=== PATIENT | female | born 1970 | race Caucasian/White ===

== ENCOUNTER 2017-03-25 17:27 | Emergency (ER) | payer SELFPAY ==
--- NOTE | 2017-03-25 18:29 | CPEKG ---
Heart Rate: 86 RR Interval: 698 P-R Interval: 152 QRSD Interval: 86 QT Interval: 384 QTC Interval: 460 P [place]: 44 QRS [place]: 48 T Wave [place]: 32 EKG Severity - BORDERLINE ECG - EKG Impression: SINUS RHYTHM EKG Impression: LOW VOLTAGE THROUGHOUT EKG Impression: Agree with above Electronically Signed By: Mayo Rahman 27-Mar-2017 10:58:52
[2017-03-25 18:50] LABS: % IMMATURE GRANULYOCYTES 0.3 % (0.0-1.1); ABSOLUTE IMMATURE GRANULOCYTES 0.02 10^3/uL (0.00-0.10); ADD DIFF? NO; ADD MORPH? NO; ADD SCAN? NO; ATYPICAL LYMPHOCYTE FLAG 0 (0-99); FRAGMENT RBC FLAG 0 (0-99); HEMATOCRIT 42.2 % (38.0-47.0); HEMOGLOBIN 14.4 g/dL (12.6-16.3); LEFT SHIFT FLG 10 (0-99); LIPEMIA HEMOLYSIS FLAG 90 (0-99); MEAN CELL HEMOGLOBIN 31.2 pg (27.9-34.1); MEAN CELL HEMOGLOBIN CONCENTR. 34.1 g/dL (32.4-36.7); MEAN CELL VOLUME 91.3 fL (81.5-99.8); MEAN PLATELET VOLUME 11.7 fL (8.7-11.7); PLATELET CLUMPS FLAG 10 (0-99); PLATELET COUNT 261 10^3/uL (150-400); RED BLOOD CELL COUNT 4.62 10^6/uL (4.18-5.33); RED CELL DISTRIBUTION WIDTH 12.8 % (11.5-15.2)
--- NOTE | 2017-03-25 18:56 | EDPHY ---
HPI/HX/ROS/PE/MDM Narrative: CHIEF COMPLAINT: Palpitations HPI: The patient is a 47-year-old female who complains of acute on chronic palpitations. The patient was diagnosed with palpitations 10 years ago. For the past year she has not experienced palpitations. Over the past 6 days these palpitations returned. She reports 6-10 episodes per hour, but not every hour. Patient attributes symptoms to recent increase in stress. She denies chest pain or shortness of breath. No new medications. REVIEW OF SYSTEMS: Aside from elements discussed in the HPI, a comprehensive 10-point review of systems was reviewed and is negative. PMH: Palpitations. SOCIAL HISTORY: Single mother. Denies drug abuse. PHYSICAL EXAM: General: Patient is alert, in no acute distress. ENT: Eyes are normal to inspection. ENT inspection normal. Neck: Normal inspection. Full range of motion. Respiratory: No respiratory distress. Breath sounds normal bilaterally. Cardiovascular: Regular rate and rhythm. Strong peripheral pulses. Abdomen: The abdomen is nontender to palpation. There are no peritoneal signs. There are normal bowel sounds. Back: Normal to inspection. No tenderness to palpation. Skin: Normal color. No rash. Warm and dry. Extremities: Normal appearance. Full range of motion. Neuro: Oriented x3. Normal motor function. Normal sensory function. ED Course: Patient presents with palpitations, which she has been evaluated for in the past. EKG was ordered and interpreted by myself, sinus rhythm. Please see [facility] system for official reading. MDM: This is a healthy female who presents with palpitations. She is NSR on ECG without evidence of arrhythmia or ischemia. Her labs are normal. She has no chest pain or SOB to suggest PE. She was observed in the ED on security monitor which did not reveal any abnormalities. She has been told in the past that her palpitations were benign, and I suspect she is likely having PVCs. I think she is safe for further outpatient workup and she agrees with the plan for discharge home with strict return precautions. - Data Points Laboratory Results: Laboratory Results 03/25/17 18:40 03/25/17 18:40 03/25/17 03/25/17 18:40 18:40 WBC 6.66 10^3/uL 10^3/uL (3.80-9.50) RBC 4.62 10^6/uL 10^6/uL (4.18-5.33) Hgb 14.4 g/dL g/dL (12.6-16.3) Hct 42.2 % % (38.0-47.0) MCV 91.3 fL fL (81.5-99.8) MCH 31.2 pg pg (27.9-34.1) MCHC 34.1 g/dL g/dL (32.4-36.7) RDW 12.8 % % (11.5-15.2) Plt Count 261 10^3/uL 10^3/uL (150-400) MPV 11.7 fL fL (8.7-11.7) Neut % (Auto) 69.3 % % (39.3-74.2) Lymph % (Auto) 21.6 % % (15.0-45.0) [place] % (Auto) 7.8 % % (4.5-13.0) Eos % (Auto) 0.5 % L % (0.6-7.6) Baso % (Auto) 0.5 % % (0.3-1.7) Nucleat RBC Rel Count 0.0 % % (0.0-0.2) Absolute Neuts (auto) 4.62 10^3/uL 10^3/uL (1.70-6.50) Absolute Lymphs (auto) 1.44 10^3/uL 10^3/uL (1.00-3.00) Absolute Monos (auto) 0.52 10^3/uL 10^3/uL (0.30-0.80) Absolute Eos (auto) 0.03 10^3/uL 10^3/uL (0.03-0.40) Absolute Basos (auto) 0.03 10^3/uL 10^3/uL (0.02-0.10) Absolute Nucleated RBC 0.00 10^3/uL 10^3/uL (0-0.01) Immature Gran % 0.3 % % (0.0-1.1) Immature Gran # 0.02 10^3/uL 10^3/uL (0.00-0.10) Sodium 138 mEq/L mEq/L (134-144) Potassium 4.3 mEq/L mEq/L (3.5-5.2) Chloride 107 mEq/L mEq/L (97-110) Carbon Dioxide 21 mEq/l L mEq/l (22-31) Anion Gap 10 mEq/L mEq/L (8-16) BUN 11 mg/dL mg/dL (7-23) Creatinine 0.6 mg/dL mg/dL (0.6-1.0) Estimated GFR > 60 Glucose 88 mg/dL mg/dL (70-100) Calcium 9.3 mg/dL mg/dL (8.5-10.4) Troponin I < 0.012 ng/mL ng/mL (0-0.034) General Time Seen by Provider: 03/25/17 18:30 Initial Vital Signs: Initial Vital Signs Temperature (C) 37.4 C 03/25/17 17:38 Heart Rate 91 03/25/17 17:38 Respiratory Rate 18 03/25/17 17:38 Blood Pressure 136/73 H 03/25/17 17:38 O2 Sat (%) 96 03/25/17 17:38 O2 Delivery Mode Room Air Allergies/Adverse Reactions: No Known Allergies Allergy (Verified 03/25/17 17:36) Home Medications: Medication Instructions Recorded NO HOME MEDS 09/06/10 Departure - Departure Disposition: Home, Routine, Self-Care Clinical Impression: Palpitations Condition: Good Instructions: Palpitations (ED) Additional Instructions: Please followup with your parking ramp attendant if you continue to have symptoms. Return to the Emergency Department with chest pain, shortness of breath, new or worsening symptoms. Referrals: Brigida Velázquez MD [Primary Care Provider] - As per Instructions [facility] [Provider Group] - As per Instructions Report Scribed for: Malvin Barton Report Scribed by: Magui Combs Date of Report: 03/25/17 Time of Report: 19:23 Physician Review and Approval Statement: Portions of this note were transcribed by a diagnostic medical sonographer. I personally performed the history, physical exam, and medical decision-making; and confirmed the accuracy of the information in the transcribed note.
[2017-03-25 19:03] LABS: ANION GAP 10 mEq/L (8-16); CALCIUM 9.3 mg/dL (8.5-10.4); CARBON DIOXIDE 21 mEq/l (22-31); CHLORIDE 107 mEq/L (97-110); CREATININE 0.6 mg/dL (0.6-1.0); GLOMERULAR FILTRATION RATE > 60; GLUCOSE 88 mg/dL (70-100); POTASSIUM 4.3 mEq/L (3.5-5.2); SODIUM 138 mEq/L (134-144)
[2017-03-25 19:14] LABS: TROPONIN I < 0.012 ng/mL (0-0.034)
[2017-03-25 19:33] VITALS: BP 133/88; PULSE 85; RESP 14; TEMP 97.5; O2SAT 95
== END 2017-03-25 19:32 | disposition home or self-care (01) ==
DX: R00.2 Palpitations (principal)

== ENCOUNTER 2017-03-27 15:37 | Emergency (ER) | payer SELFPAY ==
--- NOTE | 2017-03-27 16:01 | CPEKG ---
Heart Rate: 81 RR Interval: 741 P-R Interval: 140 QRSD Interval: 86 QT Interval: 372 QTC Interval: 432 P [place]: 37 QRS [place]: 40 T Wave [place]: 19 EKG Severity - OTHERWISE NORMAL ECG - EKG Impression: SINUS RHYTHM EKG Impression: LOW VOLTAGE IN FRONTAL LEADS EKG Impression: No significant change from March 25, 2017 Electronically Signed By: Mayo Rahman 29-Mar-2017 09:59:11
[2017-03-27 16:30] LABS: % IMMATURE GRANULYOCYTES 0.6 % (0.0-1.1); ABSOLUTE IMMATURE GRANULOCYTES 0.03 10^3/uL (0.00-0.10); ADD DIFF? NO; ADD MORPH? NO; ADD SCAN? NO; ATYPICAL LYMPHOCYTE FLAG 20 (0-99); FRAGMENT RBC FLAG 0 (0-99); HEMATOCRIT 43.5 % (38.0-47.0); HEMOGLOBIN 14.4 g/dL (12.6-16.3); LEFT SHIFT FLG 0 (0-99); LIPEMIA HEMOLYSIS FLAG 80 (0-99); MEAN CELL HEMOGLOBIN 30.8 pg (27.9-34.1); MEAN CELL HEMOGLOBIN CONCENTR. 33.1 g/dL (32.4-36.7); MEAN CELL VOLUME 92.9 fL (81.5-99.8); MEAN PLATELET VOLUME 11.7 fL (8.7-11.7); PLATELET CLUMPS FLAG 10 (0-99); PLATELET COUNT 259 10^3/uL (150-400); RED BLOOD CELL COUNT 4.68 10^6/uL (4.18-5.33); RED CELL DISTRIBUTION WIDTH 12.9 % (11.5-15.2)
[2017-03-27 16:44] LABS: ANION GAP 11 mEq/L (8-16); CARBON DIOXIDE 23 mEq/l (22-31); CHLORIDE 108 mEq/L (97-110); CREATININE 0.7 mg/dL (0.6-1.0); GLOMERULAR FILTRATION RATE > 60; GLUCOSE 96 mg/dL (70-100); POTASSIUM 4.4 mEq/L (3.5-5.2); SODIUM 142 mEq/L (134-144)
[2017-03-27 16:56] LABS: TROPONIN I < 0.012 ng/mL (0-0.034)
--- NOTE | 2017-03-27 17:44 | EDPHY ---
HPI/HX/ROS/PE/MDM Narrative: CHIEF COMPLAINT: Shortness of breath, palpitations HPI: The patient is a 47-year-old female with a history of anxiety. I saw this patient in the ER 2 days ago for palpitations and anxiety. She returns to the emergency department because she continues to experience palpitations. Approximately 1-2 hours prior to arrival, the patient sat up from a seated position and felt like she could not breathe. She felt like she was experiencing an irregular heartbeat as well. She denies any chest pain. She is currently asymptomatic. REVIEW OF SYSTEMS: Aside from elements discussed in the HPI, a comprehensive 10-point review of systems was reviewed and is negative. PMH: Includes anxiety, palpitations. Family History: No history of early CAD or sudden . No history of arrythmia. No history of connective tissue disorder. SOCIAL HISTORY: Denies alcohol or drug abuse. PHYSICAL EXAM: General:Patient is alert, in no acute distress. ENT:Eyes are normal to inspection. ENT inspection normal. Neck: Normal inspection. Full range of motion. Respiratory:No respiratory distress. Breath sounds normal bilaterally. Cardiovascular: Regular rate and rhythm. Strong peripheral pulses. Normal cap refill. Abdomen:The abdomen is nontender to palpation. There are no peritoneal signs. There are normal bowel sounds. Back: Normal to inspection. No tenderness to palpation. Skin: Normal color. No rash. Warm and dry. Extremities: Normal appearance. Full range of motion. Neuro: Oriented x3. Normal motor function. Normal sensory function. ED Course: EKG was ordered and interpreted by myself. Please see [employer] system for official reading. MDM: This patient returns for recurrent palpitations and an episode of chest tightness and shortness of breath. I expanded the workup on this visit to include chest x-ray and D-dimer, but these studies are negative, and repeat of prior labs remain normal. As such, I see no evidence of pneumonia, pneumothorax or pulmonary embolus. Additionally, her troponin and EKG remain completely normal. I reviewed over an hours worth of telemetry monitoring here in the emergency department and the patient has normal sinus rhythm exclusively without even a single PVC or other abnormality. Given the patient's somewhat tearful affect and self-described setting of intense stress at home and history of anxiety, I think the likely diagnosis is anxiety and possible panic attack. The patient had a recent TSH that was normal, so I do not think hyperthyroidism is the issue here. I think the patient would strongly benefit from a Holter monitor and further workup as an outpatient. We will give her a referral to [facility] as well. I see no evidence of acute coronary syndrome, CHF, pericarditis or thoracic aortic dissection. The patient is comfortable with this plan and agrees with our workup. - Data Points Imaging Results: Imaging Impressions Chest X-Ray 03/27/17 16:25 Impression: 1. There is no acute abnormality. 2. Slight rightward tracheal deviation, probably as a result of rightward rotational change; however, clinical correlation to assure that there is no underlying thyromegaly is suggested. Laboratory Results: Laboratory Results 03/27/17 16:20 03/27/17 16:20 03/27/17 03/27/17 03/27/17 16:20 16:20 16:20 WBC RBC Hgb Hct MCV MCH MCHC RDW Plt Count MPV Neut % (Auto) Lymph % (Auto) [place] % (Auto) Eos % (Auto) Baso % (Auto) Nucleat RBC Rel Count Absolute Neuts (auto) Absolute Lymphs (auto) Absolute Monos (auto) Absolute Eos (auto) Absolute Basos (auto) Absolute Nucleated RBC Immature Gran % Immature Gran # D-Dimer < 0.27 ug/mLFEU ug/mLFEU (0.00-0.50) Sodium 142 mEq/L mEq/L (134-144) Potassium 4.4 mEq/L mEq/L (3.5-5.2) Chloride 108 mEq/L mEq/L (97-110) Carbon Dioxide 23 mEq/l mEq/l (22-31) Anion Gap 11 mEq/L mEq/L (8-16) BUN 12 mg/dL mg/dL (7-23) Creatinine 0.7 mg/dL mg/dL (0.6-1.0) Estimated GFR > 60 Glucose 96 mg/dL mg/dL (70-100) Calcium 9.0 mg/dL mg/dL (8.5-10.4) Troponin I < 0.012 ng/mL ng/mL (0-0.034) Beta HCG, Qual NEGATIVE 03/27/17 16:20 WBC 5.43 10^3/uL 10^3/uL (3.80-9.50) RBC 4.68 10^6/uL 10^6/uL (4.18-5.33) Hgb 14.4 g/dL g/dL (12.6-16.3) Hct 43.5 % % (38.0-47.0) MCV 92.9 fL fL (81.5-99.8) MCH 30.8 pg pg (27.9-34.1) MCHC 33.1 g/dL g/dL (32.4-36.7) RDW 12.9 % % (11.5-15.2) Plt Count 259 10^3/uL 10^3/uL (150-400) MPV 11.7 fL fL (8.7-11.7) Neut % (Auto) 65.9 % % (39.3-74.2) Lymph % (Auto) 22.5 % % (15.0-45.0) [place] % (Auto) 9.0 % % (4.5-13.0) Eos % (Auto) 1.3 % % (0.6-7.6) Baso % (Auto) 0.7 % % (0.3-1.7) Nucleat RBC Rel Count 0.0 % % (0.0-0.2) Absolute Neuts (auto) 3.58 10^3/uL 10^3/uL (1.70-6.50) Absolute Lymphs (auto) 1.22 10^3/uL 10^3/uL (1.00-3.00) Absolute Monos (auto) 0.49 10^3/uL 10^3/uL (0.30-0.80) Absolute Eos (auto) 0.07 10^3/uL 10^3/uL (0.03-0.40) Absolute Basos (auto) 0.04 10^3/uL 10^3/uL (0.02-0.10) Absolute Nucleated RBC 0.00 10^3/uL 10^3/uL (0-0.01) Immature Gran % 0.6 % % (0.0-1.1) Immature Gran # 0.03 10^3/uL 10^3/uL (0.00-0.10) D-Dimer Sodium Potassium Chloride Carbon Dioxide Anion Gap BUN Creatinine Estimated GFR Glucose Calcium Troponin I Beta HCG, Qual General Time Seen by Provider: 03/27/17 15:41 Initial Vital Signs: Initial Vital Signs Temperature (C) 36.9 C 03/27/17 15:39 Heart Rate 90 03/27/17 15:39 Respiratory Rate 18 03/27/17 15:39 Blood Pressure 127/75 H 03/27/17 15:39 O2 Sat (%) 95 03/27/17 15:39 O2 Delivery Mode Room Air Allergies/Adverse Reactions: No Known Allergies Allergy (Verified 03/27/17 15:39) Home Medications: Medication Instructions Recorded NO HOME MEDS 09/06/10 Departure - Departure Disposition: Home, Routine, Self-Care Clinical Impression: Palpitations, Dyspnea, Anxiety Condition: Good Instructions: Anxiety (ED) Additional Instructions: Follow-up with your primary doctor within 72 hours. Return to the Emergency Department for fever, chest pain, shortness of breath, increasing pain or other worsening of condition. Follow up with a metal worker for further testing, as soon as possible, within one week. Referrals: Brigida Velázquez MD [Primary Care Provider] - As per Instructions Prashant Stroud MD [Medical Doctor] - As per Instructions
[2017-03-27 17:59] VITALS: BP 120/77; PULSE 75; RESP 18; O2SAT 95
[2017-03-27 18:26] VITALS: TEMP 97.9
== END 2017-03-27 18:26 | disposition home or self-care (01) ==
DX: R00.2 Palpitations (principal); F41.9 Anxiety disorder, unspecified; R06.00 Dyspnea, unspecified

== ENCOUNTER 2017-05-07 15:40 | Emergency (ER) | payer SELFPAY ==
--- NOTE | 2017-05-07 16:08 | CPEKG ---
Heart Rate: 78 RR Interval: 769 P-R Interval: 156 QRSD Interval: 82 QT Interval: 372 QTC Interval: 424 P [place]: 44 QRS [place]: 34 T Wave [place]: 35 EKG Severity - NORMAL ECG - EKG Impression: SINUS RHYTHM Electronically Signed By: Ildefonso Samaniego 07-May-2017 16:15:35
--- NOTE | 2017-05-07 16:15 | EDPHY ---
H & P Time Seen by Provider: 05/07/17 15:58 HPI/ROS: CHIEF COMPLAINT: Chest pain HISTORY OF PRESENT ILLNESS: Patient started having symptoms yesterday at around 8:00 p.m.. At noon she was carrying a bunch of big boxes into the house from [place] since they did not have any bags. She wonders if she injured her chest at that time. At 8:00 p.m. last night she started having substernal chest discomfort associated with some shortness of breath which really only was present when she took a deep breath. She felt a dull ache every time she took a deep inspiration. She also felt that she was very hyper sensitive on her chest. A little bit of nonproductive cough and congestion for the last 12 hours. REVIEW OF SYSTEMS: Eye: no change in vision ENT: no sore throat Cardiac: HPI no syncope Pulmonary: HPI no hemoptysis Abdomen: no vomiting, diarrhea, abdominal pain Musculoskeletal: no back pain or leg swelling Skin: no rash Neuro: no headache Constitutional: no fever : no urinary symptoms A comprehensive 10 point review of systems is otherwise negative aside from elements mentioned in the history of present illness. PAST MEDICAL HISTORY: Palpitations. Negative for diabetes hypertension or hypercholesterolemia. Not on hormones. Family history: Negative for premature coronary disease or venous thromboembolism. Social history: No recent travel or immobilization, negative cocaine or drugs, nonsmoker. General Appearance: Alert and conversant, cooperative. Eyes: No scleral icterus. ENT, Mouth: Normal mucous membranes. Respiratory: Normal respiratory effort, breath sounds equal, lungs are clear to auscultation. No wheezing or rales. Cardiovascular: Regular rate and rhythm. Gastrointestinal: Abdomen is soft and non tender. Neurological: Alert and oriented x3. Normally conversant. Face symmetric, normal movement and sensation in all extremities. Skin: Warm and dry, no rashes. Musculoskeletal: No peripheral edema and no joint swelling. No calf tenderness and negative [place]. Psychiatric: Not agitated. Emergency Department course/MDM: I think the patient is low risk for ACS with normal EKG and atypical symptoms and very low risk factor profile. She has been coughing chest x-ray be appropriate to evaluate for pulmonary infection. Patient is 47, heart rate less than 100, normal oxygen saturation, no unilateral leg swelling, no hemoptysis, no recent surgery or immobilization, no prior history of PE or DVT, negative for hormone use. I think pulmonary embolism would be very unlikely. 1700: Chest x-ray negative. More likely muscular or inflammatory. Smoking Status: Never smoked Constitutional: Initial Vital Signs Temperature (C) 36.5 C 05/07/17 15:46 Heart Rate 85 05/07/17 15:46 Respiratory Rate 16 05/07/17 15:46 Blood Pressure 124/63 H 05/07/17 15:46 O2 Sat (%) 97 05/07/17 15:46 O2 Delivery Mode Room Air Allergies/Adverse Reactions: No Known Allergies Allergy (Verified 03/27/17 15:39) Home Medications: Medication Instructions Recorded NO HOME MEDS 09/06/10 Propranolol Sr 05/07/17 Medical Decision Making - Diagnostics EKG Interpretation: 12-lead EKG interpreted by me; official reading is in trace master. My interpretation is sinus rhythm rate 78 no ischemic changes. Imaging Results: Imaging Impressions Chest X-Ray 05/07/17 16:11 Impression: Stable negative chest. No etiology for chest pain identified.. Differential Diagnosis: Differential diagnosis considered for chest pain including but not limited to myocardial ischemia, aortic dissection, pericarditis, pulmonary embolus, chest wall pain, pleural inflammation and pulmonary infectious causes. Departure - Departure Disposition: Home, Routine, Self-Care Clinical Impression: Chest pain Qualifiers: Chest pain type: unspecified Qualified Code(s): R07.9 - Chest pain, unspecified Condition: Good Instructions: Chest Pain (ED) Referrals: Brigida Velázquez MD [Primary Care Provider] - As per Instructions
[2017-05-07 17:32] VITALS: BP 105/69; PULSE 76; RESP 18; TEMP 98.1; O2SAT 92
== END 2017-05-07 17:32 | disposition home or self-care (01) ==
DX: R07.9 Chest pain, unspecified (principal)